=== PATIENT | male | born 1950 | race Caucasian/White ===

== ENCOUNTER 2017-06-25 08:36 | Emergency (ER) | payer MEDICARE, BC ==
[~2017-06-25] VITALS: Ht 188 cm; Wt 99.8 kg
[~2017-06-25 08:36] MED LIST: ASPI81CH PO; ENOX40I SC; FAMO20 PO; FISH OIL + D31 EACH; FISH1000 PO; LEVSOD75 PO; LOVA40 PO; OXYACE5T PO; PAIN & FEVER500 MG PO; XARELTO20 MG PO
[2017-06-25 09:14] LABS: BASOPHILS ABSOLUTE AUTO 0.02 K/mm3 (0.00-0.23); BASOPHILS PERCENT AUTO 0 % (0-2); EOSINOPHILS PERCENT AUTO 2 % (0-6); Hematocrit 39.9 % (37.0-53.0); IMMATURE GRAN ABSOLUTE AUTO 0.01 K/mm3 (0.00-0.10); IMMATURE GRAN PERCENT AUTO 0 % (0-1); LYMPHOCYTES ABSOLUTE AUTO 1.48 K/mm3 (0.84-5.20); LYMPHOCYTES PERCENT AUTO 32 % (21-46); MONOCYTES ABSOLUTE AUTO 0.35 K/mm3 (0.16-1.47); MONOCYTES PERCENT AUTO 8 % (4-13); Mean Corpuscular HGB 31.7 pg (26.0-34.0); Mean Corpuscular HGB Conc 35.1 g/dL (31.5-36.5); Mean Corpuscular Volume 90 fL (80-100); Mean Platelet Volume 9.1 fL (9.1-12.4); NEUTROPHILS ABSOLUTE AUTO 2.61 K/mm3 (1.96-9.15); NEUTROPHILS PERCENT AUTO 57 % (41-73); Platelet Count 224 K/mm3 (150-400); RDW Coefficient Variation 11.7 % (11.7-14.2); RDW Standard Deviation 38.2 fL (35.1-46.3); Red Blood Cell Count 4.42 M/mm3 (4.30-5.90); White Blood Cell Count 4.57 K/mm3 (4.00-11.30)
[2017-06-25 09:39] LABS: Troponin I <0.015 ng/mL (0.000-0.040)
[2017-06-25 09:42] LABS: Alanine Aminotransfer (ALT/SGP 23 U/L (12-78); Albumin, Blood 3.7 g/dL (3.4-5.0); Alk Phos 53 U/L (50-136); Anion Gap 8 mmol/L (6-16); Aspartate Aminotrans (AST/SGOT 19 U/L (12-37); Bilirubin, Total 0.5 mg/dL (0.1-1.0); Blood Urea Nitrogen 23 mg/dL (8-24); Bun/Creatinine Ratio 21.3 (12.0-20.0); CO2, Blood 26 mmol/L (21-32); Calcium, Blood 8.9 mg/dL (8.5-10.1); Chloride, Blood 107 mmol/L (98-108); Creatinine, Blood 1.08 mg/dL (0.60-1.20); Globulin, Blood 3.6 g/dL (2.2-4.0); Glomerular Filtration Rate >60 (60-); Glucose, Blood 118 mg/dL (70-99); Potassium, Blood 3.7 mmol/L (3.5-5.5); Sodium, Blood 141 mmol/L (136-145); Total Protein, Blood 7.3 g/dL (6.4-8.2)
[2017-06-25 10:29] LABS: Source, Urine Clean Catch
[2017-06-25 10:34] LABS: Bilirubin, Urine Neg (Neg); Blood, Urine Neg (Neg); Glucose Qualitative, Urine Neg (Neg); Ketones, Urine Neg (Neg); Leukocyte Esterase, Urine Neg (Neg); Nitrite, Urine Neg (Neg); Protein, Urine Neg (Neg); Urobilinogen, Urine NORM (Normal); pH, Urine 6.5 (5.0-8.0)
[2017-06-25 10:49] LABS: Appearance, Urine Clear (Clear); Color, Urine Yellow (P-Yellow)
[2017-06-25] MEDS ORDERED: MOTION RELIEF25 MG PO (11:00)
[2017-07-01] MEDS ORDERED: Hair, Skin & N1 EACH PO (17:40)
== END 2017-06-25 11:24 | disposition home or self-care (01) ==
LOC: ER 08:36
PROVIDERS: Emergency Medicine
DX: H81.399 Other peripheral vertigo, unspecified ear (principal); Z79.899 Other long term (current) drug therapy; Z79.82 Long term (current) use of aspirin; E78.00 Pure hypercholesterolemia, unspecified; E03.9 Hypothyroidism, unspecified
CPT/HCPCS: 36415; 71046; 80053; 81003; 84484; 85025; 93005; 93010; 96360; 99284; J7030

== ENCOUNTER 2017-07-02 06:58 | Day surgery (SDC) | payer MEDICARE, BC ==
[~2017-07-02] VITALS: Ht 188 cm; Wt 102.1 kg
[~2017-07-02 06:58] MED LIST changes: +Hair, Skin & N1 EACH PO; +MOTION RELIEF25 MG PO
== END 2017-07-02 22:35 | disposition home or self-care (01) ==
LOC: ORSCMMR 06:58 → ORD 08:00 → ORSCMMR 22:35
PROVIDERS: Internal Medicine Gastroenterology
PROC: 0DBN8ZX Excision of Sigmoid Colon, Via Natural or Artificial Opening Endoscopic, Diagnostic (ICD-10-PCS; principal; 2017-07-02 08:00)
DX: Z12.11 Encounter for screening for malignant neoplasm of colon (principal); D12.5 Benign neoplasm of sigmoid colon; Z95.0 Presence of cardiac pacemaker; I48.0 Paroxysmal atrial fibrillation; E03.9 Hypothyroidism, unspecified; E78.00 Pure hypercholesterolemia, unspecified; Z79.82 Long term (current) use of aspirin; Z79.899 Other long term (current) drug therapy
CPT/HCPCS: 88305; J7120

== ENCOUNTER → 2018-04-15 | Outpatient (CLI) | payer MEDICARE, BC | END | disposition home or self-care (01) | LOC: PLD 10:24 → LAB SHORT 10:24 | DX: D48.5 Neoplasm of uncertain behavior of skin (principal) | CPT/HCPCS: 88305 ==

== ENCOUNTER → 2019-05-21 | Outpatient (CLI) | payer MEDICARE, BC | END | disposition home or self-care (01) | LOC: LAB SHORT 11:23 → PLD 11:23 | DX: L73.8 Other specified follicular disorders (principal) | CPT/HCPCS: 88305 ==

== ENCOUNTER 2021-02-04 19:51 | Emergency (ER) | payer MEDICARE, BC ==
[~2021-02-04] VITALS: Ht 188 cm; Wt 97.5 kg
[2021-02-04 20:27] LABS: BASOPHILS ABSOLUTE AUTO 0.04 K/mm3 (0.00-0.23); BASOPHILS PERCENT AUTO 1 % (0-2); EOSINOPHILS ABSOLUTE AUTO 0.14 K/mm3 (0.00-0.68); EOSINOPHILS PERCENT AUTO 2 % (0-6); Hematocrit 40.3 % (37.0-53.0); Hemoglobin 14.2 g/dL (13.5-17.5); IMMATURE GRAN ABSOLUTE AUTO 0.01 K/mm3 (0.00-0.10); IMMATURE GRAN PERCENT AUTO 0 % (0-1); LYMPHOCYTES PERCENT AUTO 28 % (21-46); MONOCYTES ABSOLUTE AUTO 0.59 K/mm3 (0.16-1.47); MONOCYTES PERCENT AUTO 8 % (4-13); Mean Corpuscular HGB 32.1 pg (26.0-34.0); Mean Corpuscular HGB Conc 35.2 g/dL (31.5-36.5); Mean Corpuscular Volume 91 fL (80-100); NEUTROPHILS ABSOLUTE AUTO 4.84 K/mm3 (1.96-9.15); NEUTROPHILS PERCENT AUTO 62 % (41-73); Platelet Count 264 K/mm3 (150-400); RDW Coefficient Variation 11.4 % (11.7-14.2); RDW Standard Deviation 38.3 fL (35.1-46.3); Red Blood Cell Count 4.42 M/mm3 (4.30-5.90); White Blood Cell Count 7.82 K/mm3 (4.00-11.30)
[2021-02-04 20:49] LABS: Alanine Aminotransfer (ALT/SGP 32 U/L (12-78); Albumin, Blood 3.7 g/dL (3.4-5.0); Alk Phos 67 U/L (50-136); Anion Gap 4 mmol/L (6-16); Aspartate Aminotrans (AST/SGOT 26 U/L (12-37); Bilirubin, Total 0.4 mg/dL (0.1-1.0); Blood Urea Nitrogen 26 mg/dL (8-24); Bun/Creatinine Ratio 23.4 (12.0-20.0); CO2, Blood 28 mmol/L (21-32); Calcium, Blood 10.1 mg/dL (8.5-10.1); Chloride, Blood 110 mmol/L (98-108); Creatinine, Blood 1.11 mg/dL (0.60-1.20); Globulin, Blood 3.8 g/dL (2.2-4.0); Glomerular Filtration Rate >60 (60-); Glucose, Blood 124 mg/dL (70-99); Potassium, Blood 3.6 mmol/L (3.5-5.5); Sodium, Blood 142 mmol/L (136-145); Total Protein, Blood 7.5 g/dL (6.4-8.2); Troponin I <0.015 ng/mL (0.000-0.040)
[2021-02-04] MEDS ORDERED: METO25ER (22:11)
[2021-02-04] MEDS ORDERED: EZALLOR SPRINKLE5 MG (22:11)
[2021-02-04] MEDS ORDERED: GLUCOSAMINE CH1 EACH (22:12)
== END 2021-02-05 | disposition home or self-care (01) ==
LOC: ER 19:51
PROVIDERS: Physician Assistant
DX: I48.91 Unspecified atrial fibrillation (principal); E78.00 Pure hypercholesterolemia, unspecified; E03.9 Hypothyroidism, unspecified; Z79.82 Long term (current) use of aspirin; Z79.899 Other long term (current) drug therapy
CPT/HCPCS: 36415; 71046; 80053; 84484; 85025; 93005; 93010; 96374; 99285-25; A9270

== ENCOUNTER 2021-04-01 19:36 | Emergency (ER) | payer MEDICARE, BC ==
[~2021-04-01] VITALS: Ht 188 cm; Wt 98.4 kg
[~2021-04-01 19:36] MED LIST changes: +EZALLOR SPRINKLE5 MG; +GLUCOSAMINE CH1 EACH; +METO25ER
[2021-04-01] MEDS ORDERED: ELIQUIS5 M3 PO (20:03)
[2021-04-01] MEDS ORDERED: METOPROLOL SUCC25 MG PO (20:03)
[2021-04-01] MEDS ORDERED: TAMSULOSIN HCL0.4 M1 PO (20:03)
[2021-04-01] MEDS ORDERED: ROSUVASTATIN CA20 MG PO (20:03)
[2021-04-01 20:12] LABS: BASOPHILS ABSOLUTE AUTO 0.02 K/mm3 (0.00-0.23); BASOPHILS PERCENT AUTO 0 % (0-2); EOSINOPHILS ABSOLUTE AUTO 0.09 K/mm3 (0.00-0.68); EOSINOPHILS PERCENT AUTO 1 % (0-6); Hematocrit 40.3 % (37.0-53.0); IMMATURE GRAN ABSOLUTE AUTO 0.01 K/mm3 (0.00-0.10); IMMATURE GRAN PERCENT AUTO 0 % (0-1); LYMPHOCYTES ABSOLUTE AUTO 1.96 K/mm3 (0.84-5.20); LYMPHOCYTES PERCENT AUTO 26 % (21-46); MONOCYTES ABSOLUTE AUTO 0.62 K/mm3 (0.16-1.47); MONOCYTES PERCENT AUTO 8 % (4-13); Mean Corpuscular HGB 31.7 pg (26.0-34.0); Mean Corpuscular HGB Conc 34.7 g/dL (31.5-36.5); Mean Corpuscular Volume 91 fL (80-100); Mean Platelet Volume 9.2 fL (9.1-12.4); NEUTROPHILS ABSOLUTE AUTO 4.88 K/mm3 (1.96-9.15); NEUTROPHILS PERCENT AUTO 64 % (41-73); Platelet Count 244 K/mm3 (150-400); RDW Coefficient Variation 11.6 % (11.7-14.2); RDW Standard Deviation 38.9 fL (35.1-46.3); Red Blood Cell Count 4.42 M/mm3 (4.30-5.90); White Blood Cell Count 7.58 K/mm3 (4.00-11.30)
[2021-04-01 20:32] LABS: Alanine Aminotransfer (ALT/SGP 34 U/L (12-78); Albumin, Blood 3.8 g/dL (3.4-5.0); Albumin/Globulin Ratio 1.1 (0.8-1.8); Alk Phos 56 U/L (50-136); Anion Gap 6 mmol/L (6-16); Aspartate Aminotrans (AST/SGOT 19 U/L (12-37); Bilirubin, Total 0.5 mg/dL (0.1-1.0); Blood Urea Nitrogen 24 mg/dL (8-24); Bun/Creatinine Ratio 22.2 (12.0-20.0); CO2, Blood 27 mmol/L (21-32); Calcium, Blood 9.5 mg/dL (8.5-10.1); Chloride, Blood 110 mmol/L (98-108); Creatinine, Blood 1.08 mg/dL (0.60-1.20); Globulin, Blood 3.6 g/dL (2.2-4.0); Glomerular Filtration Rate >60 (60-); Glucose, Blood 122 mg/dL (70-99); Potassium, Blood 3.7 mmol/L (3.5-5.5); Sodium, Blood 143 mmol/L (136-145); Total Protein, Blood 7.4 g/dL (6.4-8.2); Troponin I <0.015 ng/mL (0.000-0.040)
[2021-04-01] MEDS ORDERED: DILT120 PO (23:08)
== END 2021-04-02 03:59 | disposition home or self-care (01) ==
LOC: ER 19:36
PROVIDERS: Physician Assistant
DX: I48.0 Paroxysmal atrial fibrillation (principal); Z79.899 Other long term (current) drug therapy; E78.00 Pure hypercholesterolemia, unspecified; E03.9 Hypothyroidism, unspecified
CPT/HCPCS: 36415; 80053; 84484; 85025; 93005; 93010; A9270; J2704; J7030

== ENCOUNTER 2021-04-05 12:38 | Day surgery (SDC) | payer MEDICARE, BC ==
[~2021-04-05 12:38] MED LIST changes: +DILT120 PO; +ELIQUIS5 M3 PO; +METOPROLOL SUCC25 MG PO; +ROSUVASTATIN CA20 MG PO; +TAMSULOSIN HCL0.4 M1 PO
--- NOTE | 2021-04-05 13:14 | NUR ---
PT IN SINUS RHYTHM. DR MCNAIR NOTIFIED, WILL COME REASSESS PATIENT.
--- NOTE | 2021-04-05 13:35 | NUR ---
DR MCNAIR AT BEDSIDE SPEAKING WITH PATIENT.
== END 2021-04-05 22:36 | disposition home or self-care (01) ==
LOC: MHTC 12:38
DX: I48.0 Paroxysmal atrial fibrillation (principal); Z45.018 Encounter for adjustment and management of other part of cardiac pacemaker; E78.5 Hyperlipidemia, unspecified; I10 Essential (primary) hypertension; E03.9 Hypothyroidism, unspecified; I83.90 Asymptomatic varicose veins of unspecified lower extremity; Q25.43 Congenital aneurysm of aorta; Z79.01 Long term (current) use of anticoagulants; E66.3 Overweight
CPT/HCPCS: 93005; 93010; 93280

== ENCOUNTER 2023-11-13 07:41 | Day surgery (SDC) | payer MEDICARE, BC ==
[~2023-11-13] VITALS: Ht 188 cm; Wt 91.4 kg
[~2023-11-13 07:41] MED LIST changes: +Balanced Salt Epinephrine Irrigation Solution 500 mL IR SCH; +Crestor40 MG PO; +ELIQUIS5 M2 PO; +GLUCHON PO; +LEVSOD100 PO; +Lidocaine HCl/Pf 1% 5 ML VIAL ONE; +Lidocaine HCl/Pf 1% 5 ML VIAL XX SCH; +MULTIPLE VITAM1 EACH PO; +Moxifloxacin HCL 0.5 MG/0.1 ML 0.4MLSYR RIGHTEYE SCH; +NS 500 ML IV ONE; +PHENYLEPHRINE\\TROPICAMIDE\\TETRACAINE OPHTHALMIC DILATING SOLN RIGHTEYE PRN; +Povidone-Iodine 450 DROP/30 ML Solution RIGHTEYE SCH; +TAMS.4ER PO; +TOPROL XL25 MG PO; +Triamcinolone Inj Susp 40 MG / ML 1ML Vial INJ SCH; +Triamcinolone Inj Susp 40 MG / ML 1ML Vial ONE
[2023-11-13] MEDS ORDERED: Midazolam HCl 1MG / ML 2ML Vial ONE (08:20)
--- NOTE | 2023-11-13 08:20 | NUR ---
11/13/23 0820 Agueda Rangel PT. DENIES ANY PAIN.
[2023-11-13] MEDS ORDERED: NS 500 ML IV ONE (08:30)
[2023-11-13] MEDS ORDERED: FentaNYL Citrate 50 MCG/ML 2 ML Injection ONE (08:31)
[2023-11-13] MEDS ORDERED: TROPICAMIDE 1% XX ONE (08:52)
[2023-11-13] MEDS ORDERED: [UNRECOGNIZED DRUG - OTHER] XX ONE (08:52)
[2023-11-13 09:16] VITALS: BP 111/75
== END 2023-11-13 09:40 | disposition home or self-care (01) ==
LOC: ORSCSDS 07:41
PROVIDERS: Ophthalmology
PROC: 08RJ3JZ Replacement of Right Lens with Synthetic Substitute, Percutaneous Approach (ICD-10-PCS; principal; 2023-11-13 09:00)
DX: H25.811 Combined forms of age-related cataract, right eye (principal); Z96.1 Presence of intraocular lens; E78.00 Pure hypercholesterolemia, unspecified; Z95.0 Presence of cardiac pacemaker; I48.91 Unspecified atrial fibrillation; E07.9 Disorder of thyroid, unspecified; Z79.01 Long term (current) use of anticoagulants; Z79.899 Other long term (current) drug therapy
CPT/HCPCS: J2001; J2250; J3010; J3301; J7040; V2632

== ENCOUNTER 2024-02-19 00:13 | Observation (INO) | payer MEDICARE, BC ==
[~2024-02-19] VITALS: Ht 188 cm; Wt 92.5 kg
[~2024-02-19 00:13] MED LIST changes: -Balanced Salt Epinephrine Irrigation Solution 500 mL IR SCH; -Lidocaine HCl/Pf 1% 5 ML VIAL ONE; -Lidocaine HCl/Pf 1% 5 ML VIAL XX SCH; -Moxifloxacin HCL 0.5 MG/0.1 ML 0.4MLSYR RIGHTEYE SCH; -NS 500 ML IV ONE; -PHENYLEPHRINE\\TROPICAMIDE\\TETRACAINE OPHTHALMIC DILATING SOLN RIGHTEYE PRN; -Povidone-Iodine 450 DROP/30 ML Solution RIGHTEYE SCH; -Triamcinolone Inj Susp 40 MG / ML 1ML Vial INJ SCH; -Triamcinolone Inj Susp 40 MG / ML 1ML Vial ONE
[2024-02-19 00:45] LABS: BASOPHILS ABSOLUTE AUTO 0.03 K/mm3 (0.00-0.23); BASOPHILS PERCENT AUTO 1 % (0-2); EOSINOPHILS PERCENT AUTO 2 % (0-6); Hematocrit 39.4 % (37.0-53.0); Hemoglobin 13.4 g/dL (13.5-17.5); IMMATURE GRAN ABSOLUTE AUTO 0.01 K/mm3 (0.00-0.10); IMMATURE GRAN PERCENT AUTO 0 % (0-1); LYMPHOCYTES ABSOLUTE AUTO 1.53 K/mm3 (0.84-5.20); LYMPHOCYTES PERCENT AUTO 30 % (21-46); MONOCYTES ABSOLUTE AUTO 0.59 K/mm3 (0.16-1.47); MONOCYTES PERCENT AUTO 12 % (4-13); Mean Corpuscular HGB 32.1 pg (26.0-34.0); Mean Corpuscular Volume 95 fL (80-100); Mean Platelet Volume 9.2 fL (9.1-12.4); NEUTROPHILS ABSOLUTE AUTO 2.77 K/mm3 (1.96-9.15); NEUTROPHILS PERCENT AUTO 55 % (41-73); Platelet Count 195 K/mm3 (150-400); RDW Coefficient Variation 11.6 % (11.7-14.2); RDW Standard Deviation 39.8 fL (35.1-46.3); Red Blood Cell Count 4.17 M/mm3 (4.30-5.90); White Blood Cell Count 5.03 K/mm3 (4.00-11.30)
[2024-02-19 00:57] LABS: Albumin, Blood 3.6 g/dL (3.4-5.0); Albumin/Globulin Ratio 1.1 (0.8-1.8); Bilirubin, Total 0.3 mg/dL (0.1-1.0); Bun/Creatinine Ratio 28.3 (12.0-20.0); Calcium, Blood 9.1 mg/dL (8.5-10.1); Creatinine, Blood 1.06 mg/dL (0.60-1.20); Globulin, Blood 3.2 g/dL (2.2-4.0); Total Protein, Blood 6.8 g/dL (6.4-8.2)
[2024-02-19] MEDS ORDERED: Ondansetron 4 MG TAB PO PRN (05:30)
[2024-02-19] MEDS ORDERED: FLU VACC TS2024-25(6MOS UP)/PF 45 MCG/0.5 ML SYRINGE IM ONE (05:30)
[2024-02-19] MEDS ORDERED: NS 1,000 ML IV SCH (06:00)
[2024-02-19] MEDS ORDERED: Heparin Sodium,Porcine/0.5 NS 500 ML IV SCH ×2 (06:40→10:55)
[2024-02-19 07:08] LABS: Anti-Xa UFH, PHA Monitoring 0.35 IU/mL; International Normalized Ratio 1.02; Prothrombin Time Results 10.9 Sec (9.7-11.5)
[2024-02-19] MEDS ORDERED: Furosemide 10 MG / ML 2ML Vial IV SCH (09:00)
[2024-02-19] MEDS ORDERED: Aspirin 81 MG TabEC PO SCH (09:00)
[2024-02-19] MEDS ORDERED: Clopidogrel Bisulfate 75 MG Tab PO SCH (09:00)
[2024-02-19 10:16] VITALS: BP 150/93
[2024-02-19] MEDS ORDERED: Regadenoson 0.4 MG/5 ML SYRINGE ONE (10:41)
[2024-02-19] MEDS ORDERED: Caffeine Citrated 60 MG/3 ML Vial ONE (10:41)
[2024-02-19 11:27] LABS: CHOL/HDL RATIO 1.8; Cholesterol 138 mg/dL (50-200); HDL Cholesterol 75 mg/dL (>39); LDL/HDL RATIO 0.7; Low Density Lipoprotein Chol 50 mg/dL (0-110); Triglycerides 63 mg/dL (30-160); Very Low Density Lipoprot Chol 12 mg/dL (6-32)
[2024-02-19] MEDS ORDERED: Verapamil HCL 2.5 MG/ML 2ML Injection ONE (11:31)
[2024-02-19] MEDS ORDERED: NS 250 ML IV ONE (11:31)
[2024-02-19] MEDS ORDERED: Heparin Sodium 1000 Units/ML 10ML MDV ONE ×3 (11:31→16:25)
[2024-02-19] MEDS ORDERED: NS 1,000 ML IV ONE ×2 (11:32→14:01)
[2024-02-19] MEDS ORDERED: Nitroglycerin 2 MG/20 ML BTL ONE (11:32)
--- NOTE | 2024-02-19 12:09 | NUR ---
report given to [facility] for patient transfer to [id number] after the angiogram
--- NOTE | 2024-02-19 12:50 | NUR ---
REPORT RECIEVED FROM [facility] RN AT 1159. PT TO GO TO MACHINE ZIPPER TRIMMER AND COME TO PCU POST PROCEDURE.
[2024-02-19] MEDS ORDERED: FentaNYL Citrate 50 MCG/ML 2 ML Injection ONE ×2 (14:00→15:34)
[2024-02-19] MEDS ORDERED: Midazolam HCl 1MG / ML 2ML Vial ONE ×2 (14:01→15:34)
--- NOTE | 2024-02-19 14:04 | NUR ---
PATIENT LEFT TO EXPLOSIVE OPERATOR GRENADE VIA W/C, PERSONAL BELONGINGS TAKEN DOWN TO PCU 6
--- NOTE | 2024-02-19 14:04 | NUR ---
"Spiritual Care Visit | Pt. request Pt. is awake in bed when he welcomes my visit. Pt. is pleasant. Facilitated a fascinatingly detailed life review whe matters of work, family and [place] are considered. Pt. displays evidence of being very grounded even after the fairly recent passing of his . Staff came to bring him downstairs for an angiogram. The fine arts packer excused himself, but Pt. welcomed a return visit after his procedure. Will remain available to the Pt."
[2024-02-19] MEDS ORDERED: Aspirin 81 MG Chew ONE (15:15)
[2024-02-19] MEDS ORDERED: Ticagrelor 90 MG TABLET ONE (15:15)
[2024-02-19] MEDS ORDERED: Tirofiban HCL Monohydrate 3.75 MG/15 ML Vial ONE (15:37)
[2024-02-19] MEDS ORDERED: Tirofiban HCL M-Hyd/NS 250 ML IV ONE (15:38)
[2024-02-19] MEDS ORDERED: NS 500 ML IV ONE (16:18)
[2024-02-19 18:02] VITALS: BP 154/94
--- NOTE | 2024-02-19 18:27 | NUR ---
ARRIVAL TO UNIT PT ARRIVED TO PCU AT 1755 VIA HOSPITAL BED AND ON RA. PT A/OX4. TR BAND TO THE RIGHT RADIAL SITE, SOME OOZING NOTED. REFRIGERATING MACHINE OPERATOR RN INSTRUCTED THIS RN TO ADD 1 ML OF AIR TO TR BAND AFTER NOTICING THE AMOUNT OF OOZING. PT INSTRUCTED NOT TO JENS WRIST AND TO ASSIST IN MONITORING HIS RADIAL SITE, PT VEBALIZED UNDERSTANDING. PT ORIENTED TO ROOM AND PROVIDED FOOD UPON REQUEST. PT INFOMR ED OF [facility]WU[facility]ITALS POST PROCEDURE. VSS STABLE AT TIME OF ARRIVAL.
[2024-02-19 20:00] VITALS: BP 100/69
[2024-02-19] MEDS ORDERED: Melatonin 5 MG Tablet PO PRN (21:50)
[2024-02-19] MEDS ORDERED: TraMADol HCl 50 MG Tab PO PRN (22:40)
[2024-02-20] VITALS: BP 104/85
--- NOTE | 2024-02-20 00:48 | NUR ---
THIS RN ASSUMED CARE OF PT AT 1900. PT IS ALERT AND ORIENTED X4, PT SITTING ON THE EDGE OF BED, PT STATES FEELING MUCH BETTER BUT IS HAVING A SHARP PAIN WHEN TAKING A DEEP BREATHE, CALLED CHASE PITTMAN NP AND SINCE PT IS HAVING STABLE VITAL SIGNS, EKG WAS UNCHANGED, AND PT DENIED HEAVY CHEST PRESSURE, TO KEEP AN EYE ON IT AND CALL TENTERING MACHINE OFF BEARER IF WORSENS. PT IS IN NORMAL SINUS RHYTHM WITH A PACER TO KEEP HEART RATE >60. PT SOUNDS CLEAR/DIMINSHED, HAVING SOME SHORTNESS OF BREATHE WHICH RESOLVES WITH SPLINTING PILLOW, SATTING >95% ON ROOM AIR. PT RADIAL SITE HAD A HEMATOMA THAT WAS BLUE, THIS RN MARKED WITH PEN, ALSO STILL HAD 11ML OF AIR IN TR BAND. PULSES WERE DOPPLER STRONG AND PT STILL HAS SENSATION IN HAND, [facility]ASE [facility]TMAN DIRECTOR OF SURGERY ALSO NOTIFIED. PT ABLE TO USE BATHROOM WITH ASSISTANCE. PT IS VERY PLEASANT AND WILLING TO LEARN. NO OTHER INTERVENTIONS AT THIS TIME. PLAN OF CARE CONTINUED.
--- NOTE | 2024-02-20 00:57 | NUR ---
PT HAD TR BAND WITH 11ML OF AIR IN IT. PER PROTOCOL THIS RN STARTED TAKING AIR OUT 2 HOURS AFTER PROCEDURE SINCE ACT >200. STARTING AT 2200 THIS RN TOOK OUT 2ML OF AIR, 2ML OUT AT 2210, 2ML OUT AT 2220, 2ML OUT AT 2230, 2ML OUT AT 2240, THEN 1ML AT 2250. THEN LEFT TR BAND ON FOR ONE HOUR TO MAKE SURE SITE WAS STILL NOT BLEEDING. THE HEMATOMA HAD GOTTEN LESS SWOLLEN AND LESS PAINFUL FOR PT AFTER AIR WAS OUT, HEMATOMA HAD NOT GOTTEN ANY LARGER AND WENT DOWN IN SIZE. AFTER THE HOUR WAIT THIS RN PUT A DRESSING OVER THE SITE, WILL CONTINUE TO WATCH OVERNIGHT AND CALL TOE SEWER WITH ANY CHANGES.PLAN OF CARE CONTINUED.
[2024-02-20 03:03] LABS: BASOPHILS ABSOLUTE AUTO 0.02 K/mm3 (0.00-0.23); BASOPHILS PERCENT AUTO 0 % (0-2); EOSINOPHILS ABSOLUTE AUTO 0.01 K/mm3 (0.00-0.68); EOSINOPHILS PERCENT AUTO 0 % (0-6); Hemoglobin 12.5 g/dL (13.5-17.5); IMMATURE GRAN ABSOLUTE AUTO 0.01 K/mm3 (0.00-0.10); IMMATURE GRAN PERCENT AUTO 0 % (0-1); LYMPHOCYTES PERCENT AUTO 6 % (21-46); MONOCYTES ABSOLUTE AUTO 0.42 K/mm3 (0.16-1.47); MONOCYTES PERCENT AUTO 7 % (4-13); Mean Corpuscular HGB 32.1 pg (26.0-34.0); Mean Corpuscular HGB Conc 34.7 g/dL (31.5-36.5); Mean Corpuscular Volume 93 fL (80-100); Mean Platelet Volume 9.2 fL (9.1-12.4); NEUTROPHILS ABSOLUTE AUTO 5.63 K/mm3 (1.96-9.15); NEUTROPHILS PERCENT AUTO 87 % (41-73); Platelet Count 184 K/mm3 (150-400); RDW Coefficient Variation 11.7 % (11.7-14.2); RDW Standard Deviation 39.3 fL (35.1-46.3); Red Blood Cell Count 3.89 M/mm3 (4.30-5.90); White Blood Cell Count 6.49 K/mm3 (4.00-11.30)
[2024-02-20 03:37] LABS: Bun/Creatinine Ratio 21.9 (12.0-20.0); Calcium, Blood 8.7 mg/dL (8.5-10.1); Creatinine, Blood 1.05 mg/dL (0.60-1.20); Magnesium, Blood 1.9 mg/dL (1.6-2.4); Potassium, Blood 3.8 mmol/L (3.5-5.5)
[2024-02-20 04:00] VITALS: BP 113/80
--- NOTE | 2024-02-20 05:45 | NUR ---
PT SUMMARY THIS RN WENT IN TO TALK TO PT AT 0545, PT STATES AFTER GETTING SOME SLEEP THEY FEEL MUCH BETTER. THE SHAPR PAIN WHEN TAKING A DEEP BREATHE HAS GOTTEN BETTER. THE HEMATOMA ON RIGHT RADIAL SITE IS LOOKING BETTER, CLEAN, DRY AND INTACT WITH NO BLEEDING, PT STATES IT DOES NOT HURT ANYMORE. PT IS CURRENTLY IN BED WAITING FOR SENIOR GIS ANALYST TO COME BY. NO OTHER NEW REPORTS OVERNIGHT. PLAN OF CARE CONTINUED.
[2024-02-20] MEDS ORDERED: Ticagrelor 90 MG TABLET PO SCH (06:00)
[2024-02-20 07:40] VITALS: BP 117/71
[2024-02-20] MEDS ORDERED: Metoprolol Succinate 25 MG TABCR PO SCH (09:00)
[2024-02-20] MEDS ORDERED: Atorvastatin 40 MG Tab PO SCH (09:00)
[2024-02-20] MEDS ORDERED: Apixaban 5 MG Tab PO SCH (09:00)
[2024-02-20] MEDS ORDERED: Enoxaparin 40 MG/0.4 ML SYR SC SCH (09:00)
[2024-02-20] MEDS ORDERED: Clopidogrel Bisulfate 300 MG Cap PO ONE ×2 (10:40→13:00)
[2024-02-20 12:36] VITALS: BP 106/72
[2024-02-20] MEDS ORDERED: METO25ER PO (14:01)
[2024-02-20] MEDS ORDERED: CLOP75 PO (14:04)
--- NOTE | 2024-02-20 14:40 | NUR ---
DISCHARGE UPDATE DISCHARGE PACKET GONE OVER WITH PT AND PT FAMILY MEMBER AT 1420. PT DISCHARGED AT 1435 VIA WHEELCHAIR AND ON RA. PT ABLE TO DRESS HIMSELF AND TRANSFER TO AND FROM WHEELCHAIR ON HIS OWN, TOLRATED WELL. DISCHARGE PACKET AND PERSONAL BELONGINGS WITH PT FAMILY MEMBER AT TIME OF DISCHARGE. RIGHT RADIAL SITE C/D/I WITH TEGADERM IN PLACE. ARM BOARD IN PLACE FOR SAFETY.
[2024-02-21] MEDS ORDERED: Clopidogrel Bisulfate 75 MG Tab PO SCH (09:00)
== END 2024-02-20 14:47 | disposition home or self-care (01) ==
LOC: ER 00:13 → ERHOLD 00:14 → MEDS 00:14 → PCU 13:59
PROVIDERS: Emergency Medicine; Internal Medicine; Student in an Organized Health Care Education/Training Program; ADMIT Internal Medicine
DX: I21.4 Non-ST elevation (NSTEMI) myocardial infarction (principal); I25.118 Atherosclerotic heart disease of native coronary artery with other forms of angina pectoris; I48.0 Paroxysmal atrial fibrillation; E03.9 Hypothyroidism, unspecified; E78.5 Hyperlipidemia, unspecified; N40.0 Benign prostatic hyperplasia without lower urinary tract symptoms; I71.9 Aortic aneurysm of unspecified site, without rupture; Z95.0 Presence of cardiac pacemaker; Z79.01 Long term (current) use of anticoagulants; Z79.890 Hormone replacement therapy; Z79.899 Other long term (current) drug therapy
CPT/HCPCS: 36415; 71045; 71046; 76937; 80048; 80053; 80061; 83036; 83735; 84443; 84484; 85025; 85347; 85520; 85610; 85730; 92924; 92972; 92978; 93005; 93010; 93306; 93454; 93458; 94762; 96365; 96366; 96375; 96376; 99152; 99153; 99285-25; A9270; C1725; C1753; C1761; C1769; C1874; C1887; C1894; C9600; G0378; J0706; J1644; J1940; J2250; J2785; J3010; J3246; J7030; J7040; J7050; Q9967